=== PATIENT | female | born 2000 | race Caucasian/White ===

== ENCOUNTER → 2022-11-03 | Outpatient (CLI) | payer OTHER ==
[2022-11-04 00:41] LABS: Chol/HDL Ratio 3.64 Ratio; LDL Cholesterol,Calculated 84.4 mg/dL (0.0-131.0)
[2022-11-04 05:54] LABS: C-Peptide <0.02 ng/mL (0.81-3.85)
== END | disposition home or self-care (01) ==
LOC: LABWHC1 16:14
DX: E10.65 Type 1 diabetes mellitus with hyperglycemia (principal); Z86.39 Personal history of other endocrine, nutritional and metabolic disease
CPT/HCPCS: 36415; 80061; 83519; 84439; 84443; 84681

== ENCOUNTER 2023-07-08 20:59 | Inpatient (IN) | payer OTHER ==
[2023-07-08] MEDS ORDERED: diphenhydrAMINE 50 MG CAP PO STA (23:22)
[2023-07-08] MEDS ORDERED: DEXAMETHASONE SOD PHOSPHATE 10 MG/ML 1 ML VIAL IM STA (23:22)
[2023-07-08] MEDS ORDERED: FAMOTIDINE 20 MG TAB PO STA (23:22)
--- NOTE | 2023-07-08 23:25 | ED ---
Skin/Abscess/FB HPI - General Chief complaint: Skin/Abscess/Foreign Body Stated complaint: hives Time Seen by Provider: 07/08/23 23:09 Source: patient Mode of arrival: ambulatory Limitations: no limitations - History of Present Illness Initial comments: 23-year-old female presenting with chief complaint hives. Patient states that the hives started yesterday after taking a bath. She denies any new topical products, foods, or medications. Hives or generalized states that they have persisted into today. She has taken a generic antihistamine and has used hydrocortisone cream at home. She is having no difficulty breathing or swallowing. No swelling to the lips or around the eyes. No abdominal pain, nausea, vomiting. No chest pain. Patient states that she has noted some mild right-sided flank pain. No dysuria or hematuria. She states that she had a fever yesterday after her hot bath. - Related Data Previous Rx's Medication Instructions Recorded methylPREDNISolone Dose Pack 4 mg PO DIRECTED #1 packet 07/08/23 [Medrol Dose Pack] Allergies Allergy/AdvReac Type Severity Reaction Status Date / Time No Known Allergies Allergy Verified 07/08/23 21:29 Review of Systems ROS Statement: Those systems with pertinent positive or pertinent negative responses have been documented in the HPI. ROS Other: All systems not noted in ROS Statement are negative. Past Medical History Past Medical History: Diabetes Mellitus History of Any Multi-Drug Resistant Organisms: None Reported Past Surgical History: No Surgical Hx Reported Past Psychological History: Anxiety, Depression Smoking Status: Never smoker Past Alcohol Use History: None Reported Past Drug Use History: None Reported General Exam Limitations: no limitations General appearance: alert, in no apparent distress Head exam: Present: atraumatic, normocephalic, normal inspection Eye exam: Present: normal appearance, EOMI Neck exam: Present: normal inspection, full ROM Respiratory exam: Present: normal lung sounds bilaterally. Absent: respiratory distress, wheezes, rales, rhonchi, stridor Cardiovascular Exam: Present: regular rate, normal rhythm, normal heart sounds. Absent: systolic murmur, diastolic murmur, rubs, gallop, clicks GI/Abdominal exam: Present: soft. Absent: distended, tenderness, guarding, rebound, rigid Neurological exam: Present: alert, oriented X3, CN II-XII intact Psychiatric exam: Present: normal affect, normal mood Skin exam: Present: warm, dry, intact, urticaria Course Vital Signs 07/08/23 07/08/23 07/08/23 21:26 23:31 23:54 Temperature 98.9 F Pulse Rate 132 H 96 102 H Respiratory 18 16 18 Rate Blood Pressure 119/80 89/56 99/53 O2 Sat by Pulse 96 98 98 Oximetry 07/09/23 00:24 Temperature Pulse Rate 98 Respiratory 18 Rate Blood Pressure 102/68 O2 Sat by Pulse 98 Oximetry Medical Decision Making - Medical Decision Making Was pt. sent in by a medical professional or institution (, DENISE, POLICE LIAISON, urgent care, hospital, or skilled nursing...) When possible be specific @ -No Did you speak to anyone other than the patient for history (EMS, parent, family, police, friend...)? What history was obtained from this source @ -No Did you review nursing and triage notes (agree or disagree)? Why? @ -I reviewed and agree with nursing and triage notes Were old charts reviewed (outside hosp., previous admission, EMS record, old EKG , old radiological studies, urgent care reports/EKG's, skilled nursing records)? Report findings @ -No old charts were reviewed Differential Diagnosis (chest pain, altered mental status, abdominal pain women, abdominal pain men, vaginal bleeding, weakness, fever, dyspnea, syncope, headache, dizziness, GI bleed, back pain, seizure, CVA, palpatations, mental health, musculoskeletal)? @ -Differential includes ALLERGIC reaction, cellulitis, Dwight Michael syndrome, this is not an all-inclusive list EKG interpreted by me (3pts min.). @ -As above X-rays interpreted by me (1pt min.). @ -None done CT interpreted by me (1pt min.). @ -None done U/S interpreted by me (1pt. min.). @ -None done What testing was considered but not performed or refused? (CT, X-rays, U/S, labs)? Why? @ -None What meds were considered but not given or refused? Why? @ -None Did you discuss the management of the patient with other professionals (professionals i.e. DENISE Rivers, POLICE LIAISON, lab, RT, psych nurse, high school social studies tutor, court officer, teacher, anti air warfare operations officer, case assistant)? Give summary @ -My attending spoke with [facility] hospitalist group provider on-call who accepted admission Was smoking cessation discussed for >3mins.? @ -No Was critical care preformed (if so, how long)? @ -No Were there social determinants of health that impacted care today? How? (Homelessness, low income, unemployed, alcoholism, drug addiction, transportation, low edu. Level, literacy, decrease access to med. care, skilled nursing, rehab)? @ -No Was there de-escalation of care discussed even if they declined (Discuss DNR or withdrawal of care, Hospice)? DNR status @ -No What co-morbidities impacted this encounter? (DM, HTN, Smoking, COPD, CAD, Cancer, CVA, ARF, Chemo, Hep., AIDS, mental health diagnosis, sleep apnea, morbid obesity)? @ -None Was patient admitted / discharged? Hospital course, mention meds given and rout e, prescriptions, significant lab abnormalities, going to OR and other pertinent info. @ -23-year-old female presenting with chief complaint of rash that started yesterday. No difficulty breathing or swallowing. Patient was noted to be initially tachycardic, on reassessment she was hypotensive. Lab work shows WBC 19. Urine is positive for infection. HCG is negative. Patient states that she has had some mild right-sided flank pain. Due to hemodynamic instability patient will be admitted for pyelonephritis. She is given 1 g of Rocephin as well as 2 L fluid bolus and started on maintenance rate of 1:30 milliliters per hour. She is agreeable with this plan. I discussed this case with my attending Dr. Yousif Undiagnosed new problem with uncertain prognosis? @ -No Drug Therapy requiring intensive monitoring for toxicity (Heparin, Nitro, Insulin, Cardizem)? @ -No Were any procedures done? @ -No Diagnosis/symptom? @ -Pyelonephritis Acute, or Chronic, or Acute on Chronic? @ -Acute Uncomplicated (without systemic symptoms) or Complicated (systemic symptoms)? @ -Complicated Side effects of treatment? @ -No Exacerbation, Progression, or Severe Exacerbation? @ -No Poses a threat to life or bodily function? How? (Chest pain, [place], [place], pneumonia, PE, COPD, DKA, ARF, appy, cholecystitis, CVA, Diverticulitis, Homicidal, Suicidal, threat to staff... and all critical care pts) @ -yes - Lab Data Result diagrams: 07/08/23 23:48 07/08/23 23:48 Lab Results 07/08/23 07/08/23 07/09/23 Range/Units 23:48 23:48 01:07 WBC 19.0 H (3.8-10.6) k/uL RBC 5.33 (3.80-5.40) m/uL Hgb 13.9 (11.4-16.0) gm/dL Hct 42.9 (34.0-46.0) % MCV 80.4 (80.0-100.0) fL MCH 26.1 (25.0-35.0) pg MCHC 32.5 (31.0-37.0) g/dL RDW 12.9 (11.5-15.5) % Plt Count 376 (150-450) k/uL MPV 8.2 Neutrophils % 83 % Lymphocytes % 12 % Monocytes % 4 % Eosinophils % 0 % Basophils % 0 % Neutrophils # 15.8 H (1.3-7.7) k/uL Lymphocytes # 2.2 (1.0-4.8) k/uL Monocytes # 0.8 (0-1.0) k/uL Eosinophils # 0.1 (0-0.7) k/uL Basophils # 0.0 (0-0.2) k/uL Sodium 132 L (137-145) mmol/L Potassium 3.5 (3.5-5.1) mmol/L Chloride 101 (98-107) mmol/L Carbon Dioxide 20 L (22-30) mmol/L Anion Gap 11 mmol/L BUN 11 (7-17) mg/dL Creatinine 1.08 H (0.52-1.04) mg/dL Est GFR (CKD-EPI)AfAm 84 (>60 ml/min/1.73 sqM) Est GFR (CKD-EPI)NonAf 73 (>60 ml/min/1.73 sqM) Glucose 155 H (74-99) mg/dL Calcium 8.9 (8.4-10.2) mg/dL Total Bilirubin 0.7 (0.2-1.3) mg/dL AST 20 (14-36) U/L ALT 15 (4-34) U/L Alkaline Phosphatase 87 (38-126) U/L Total Protein 6.5 (6.3-8.2) g/dL Albumin 3.5 (3.5-5.0) g/dL Urine Color Yellow Urine Appearance Turbid H (Clear) Urine pH 6.0 (5.0-8.0) Ur Specific [place] 1.031 (1.001-1.035) Urine Protein 2+ H (Negative) Urine Glucose (UA) Trace H (Negative) Urine Ketones 2+ H (Negative) Urine Blood Small H (Negative) Urine Nitrite Positive H (Negative) Urine Bilirubin Negative (Negative) Urine Urobilinogen 2.0 (<2.0) mg/dL Ur Leukocyte Esterase Large H (Negative) Urine RBC 18 H (0-5) /hpf Urine WBC 102 H (0-5) /hpf Ur Squamous Epith Cells 56 H (0-4) /hpf Urine Bacteria Many H (None) /hpf Hyaline Casts 148 H (0-2) /lpf Urine Mucus Many H (None) /hpf Urine HCG, Qual (Not Detectd) 07/09/23 Range/Units 01:07 WBC (3.8-10.6) k/uL RBC (3.80-5.40) m/uL Hgb (11.4-16.0) gm/dL Hct (34.0-46.0) % MCV (80.0-100.0) fL MCH (25.0-35.0) pg MCHC (31.0-37.0) g/dL RDW (11.5-15.5) % Plt Count (150-450) k/uL MPV Neutrophils % % Lymphocytes % % Monocytes % % Eosinophils % % Basophils % % Neutrophils # (1.3-7.7) k/uL Lymphocytes # (1.0-4.8) k/uL Monocytes # (0-1.0) k/uL Eosinophils # (0-0.7) k/uL Basophils # (0-0.2) k/uL Sodium (137-145) mmol/L Potassium (3.5-5.1) mmol/L Chloride (98-107) mmol/L Carbon Dioxide (22-30) mmol/L Anion Gap mmol/L BUN (7-17) mg/dL Creatinine (0.52-1.04) mg/dL Est GFR (CKD-EPI)AfAm (>60 ml/min/1.73 sqM) Est GFR (CKD-EPI)NonAf (>60 ml/min/1.73 sqM) Glucose (74-99) mg/dL Calcium (8.4-10.2) mg/dL Total Bilirubin (0.2-1.3) mg/dL AST (14-36) U/L ALT (4-34) U/L Alkaline Phosphatase (38-126) U/L Total Protein (6.3-8.2) g/dL Albumin (3.5-5.0) g/dL Urine Color Urine Appearance (Clear) Urine pH (5.0-8.0) Ur Specific [place] (1.001-1.035) Urine Protein (Negative) Urine Glucose (UA) (Negative) Urine Ketones (Negative) Urine Blood (Negative) Urine Nitrite (Negative) Urine Bilirubin (Negative) Urine Urobilinogen (<2.0) mg/dL Ur Leukocyte Esterase (Negative) Urine RBC (0-5) /hpf Urine WBC (0-5) /hpf Ur Squamous Epith Cells (0-4) /hpf Urine Bacteria (None) /hpf Hyaline Casts (0-2) /lpf Urine Mucus (None) /hpf Urine HCG, Qual Not Detected (Not Detectd) Disposition Clinical Impression: Pyelonephritis Disposition: ADMITTED IP TO THIS HOSP Condition: Fair Time of Disposition: 03:54
[2023-07-08] MEDS ORDERED: SODIUM CHLORIDE 0.9% 1,000 ML IV ONE (23:38)
[2023-07-08 23:59] LABS: Basophils % (A) 0 %; Eosinophils # (A) 0.1 k/uL (0-0.7); Eosinophils % (A) 0 %; HCT 42.9 % (34.0-46.0); HGB 13.9 gm/dL (11.4-16.0); Lymphocytes # (A) 2.2 k/uL (1.0-4.8); Lymphocytes % (A) 12 %; MCH 26.1 pg (25.0-35.0); MCHC 32.5 g/dL (31.0-37.0); MCV 80.4 fL (80.0-100.0); Mean Platelet Volume 8.2; Monocytes # (A) 0.8 k/uL (0-1.0); Monocytes % (A) 4 %; Neutrophils # (A) 15.8 k/uL (1.3-7.7); Neutrophils % (A) 83 %; Platelet Count 376 k/uL (150-450); RBC 5.33 m/uL (3.80-5.40); RDW 12.9 % (11.5-15.5)
[2023-07-09 00:26] LABS: ALT 15 U/L (4-34); AST 20 U/L (14-36); African American GFR (CKD) 84 (>60 ml/min/1.73 sqM); Albumin 3.5 g/dL (3.5-5.0); Alkaline Phosphatase 87 U/L (38-126); Anion Gap 11 mmol/L; Blood Urea Nitrogen 11 mg/dL (7-17); Calcium 8.9 mg/dL (8.4-10.2); Carbon Dioxide 20 mmol/L (22-30); Chloride 101 mmol/L (98-107); Glucose 155 mg/dL (74-99); Non-African American GFR(CKD) 73 (>60 ml/min/1.73 sqM); Potassium 3.5 mmol/L (3.5-5.1); Sodium 132 mmol/L (137-145); Total Bilirubin 0.7 mg/dL (0.2-1.3); Total Protein 6.5 g/dL (6.3-8.2)
[2023-07-09 01:24] LABS: Appearance,Urine Turbid (Clear); Bacteria,Urine Many /hpf; Bilirubin,Urine Negative (Negative); Blood,Urine Small (Negative); Color,Urine Yellow; Glucose,Urine (UA) Trace (Negative); Hyaline Casts,Urine 148 /lpf (0-2); Ketones,Urine 2+ (Negative); Leukocyte Esterase,Urine Large (Negative); Mucus,Urine Many /hpf; Nitrite,Urine Positive (Negative); Protein,Urine 2+ (Negative); RBC,Urine 18 /hpf (0-5); Specific Gravity,Urine 1.031 (1.001-1.035); Squamous Epithelial Cell,Urine 56 /hpf (0-4); WBC,Urine 102 /hpf (0-5)
[2023-07-09] MEDS ORDERED: ACETAMINOPHEN TAB 325 MG TAB PO PRN (01:43)
[2023-07-09] MEDS ORDERED: NALOXONE 0.4 MG/ML 1 ML VIAL IV PRN (01:43)
[2023-07-09] MEDS ORDERED: IBUPROFEN 400 MG TAB PO PRN (01:43)
[2023-07-09] MEDS ORDERED: KETOROLAC 15 MG/ML 1 ML VIAL IVP PRN (01:43)
[2023-07-09] MEDS ORDERED: ONDANSETRON 4 MG/2 ML VIAL IVP PRN (01:43)
[2023-07-09] MEDS ORDERED: SODIUM CHLORIDE 0.9% 1,000 ML IV ONE (01:44)
[2023-07-09] MEDS ORDERED: cefTRIAXone IN SWFI 1,000 MG/10 ML SYRINGE IVP ONE (02:00)
[2023-07-09] MEDS ORDERED: diphenhydrAMINE 25 MG CAP PO PRN (02:54)
[2023-07-09] MEDS: SODIUM CHLORIDE 0.9% 1,000 ML IV SCH ×2 (04:37→08:37)
[2023-07-09] MEDS ORDERED: DEXTROSE 50% SYRINGE 50 ML IVP PRN ×2 (09:57)
[2023-07-09] MEDS ORDERED: PREGABALIN 75 MG CAP PO SCH (10:00)
[2023-07-09] MEDS ORDERED: FLUoxetine HCL 20 MG CAP PO SCH (10:00)
[2023-07-09] MEDS ORDERED: Insulin Aspart (For Pump) 100 UNIT/ML VIAL SQ-PUMP SCH (10:00)
[2023-07-09 11:37] LABS: Basophils % (A) 0 %; Eosinophils # (A) 0.1 k/uL (0-0.7); Eosinophils % (A) 1 %; HCT 40.3 % (34.0-46.0); HGB 13.1 gm/dL (11.4-16.0); Lymphocytes % (A) 7 %; MCH 26.4 pg (25.0-35.0); MCHC 32.6 g/dL (31.0-37.0); MCV 81.2 fL (80.0-100.0); Monocytes # (A) 0.4 k/uL (0-1.0); Monocytes % (A) 3 %; Neutrophils # (A) 13.2 k/uL (1.3-7.7); Neutrophils % (A) 90 %; Platelet Count 382 k/uL (150-450); RBC 4.96 m/uL (3.80-5.40); WBC 14.7 k/uL (3.8-10.6)
[2023-07-09 11:58] LABS: ALT 16 U/L (4-34); AST 20 U/L (14-36); African American GFR (CKD) >90 (>60 ml/min/1.73 sqM); Albumin 3.4 g/dL (3.5-5.0); Albumin/Globulin Ratio 1.2; Alkaline Phosphatase 90 U/L (38-126); Anion Gap 10 mmol/L; Blood Urea Nitrogen 11 mg/dL (7-17); Calcium 8.8 mg/dL (8.4-10.2); Carbon Dioxide 19 mmol/L (22-30); Chloride 107 mmol/L (98-107); Globulin 2.9 g/dL; Glucose 233 mg/dL (74-99); Non-African American GFR(CKD) >90 (>60 ml/min/1.73 sqM); Potassium 4.3 mmol/L (3.5-5.1); Sodium 136 mmol/L (137-145); Total Bilirubin 0.4 mg/dL (0.2-1.3); Total Protein 6.3 g/dL (6.3-8.2)
[2023-07-09 12:13] LABS: Glucose,Whole Blood 209 mg/dL (70-110)
[2023-07-09] MEDS ORDERED: HYDROCORTISONE 1% CREAM 30 GM TUBE TOPICAL PRN (14:08)
[2023-07-09] MEDS ORDERED: LORATADINE 10 MG TAB PO SCH (14:15)
--- NOTE | 2023-07-09 14:23 | P.HPIM ---
History of Present Illness H&P Date: 07/09/23 This is a pleasant 23-year-old female who presented to the emergency department with increased itching and discomfort and hives. Patient reports she was taking a hot bath and has been chronically having issues with hives and welts and rashes over the last few years when getting too hot. Patient reports she was taking a hot bath and came out of the bath and had multiple small lesions and welts noted an [id number] was not helping. Patient reports she follows with Dr. Lugo out of [place] as her primary care provider with past medical history of diabetes mellitus, type I is maintained on insulin pump. 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 Patient reports her primary care provider has been providing her insulins for her. Patient was also noted to have some right CVA tenderness on exam and did present with an elevated white count and was tachycardic on admission. Urinalysis was obtained showing small blood with positive nitrates large leukocytes and was given a dose of ceftriaxone. Urine culture was sent and pending at this time. Patient was admitted for acute pyelonephritis. On exam patient no longer reports any CVA tenderness denies any pain, burning, frequency with urination and continues to have some small welts that are itchy although have improved as well. Review Of Systems: Constitutional: Reports of fever prior to hospitalization, no chills, no night sweats. No weight change. No weakness, fatigue or lethargy. No daytime sleepiness. EENT: No headache. No blurred vision or double vision, no loss of vision. No loss of Hearing, no ringing in the ears, no dizziness. No nasal drainage or congestion. No epistaxis. No sore throat. Lungs: No shortness of breath, cough, no sputum production. No wheezing. Cardiovascular: No chest pain, no lower extremity edema. No palpitations. No paroxysmal nocturnal dyspnea. No orthopnea. No lightheadedness or dizziness. No syncopal episodes. Abdominal: No abdominal pain. No nausea, vomiting. No diarrhea. No constipation. No bloody or tarry stools.. No loss of appetite. Reported some right mid to upper back pain that has resolved Genitourinary: No dysuria, increased frequency, urgency. No urinary retention. Musculoskeletal: No myalgias. No muscle weakness, no gait dysfunction, no frequent falls. No back pain. No neck pain. Integumentary: No wounds, reports hives and welts that come and go. Reports severe itchiness. No rash or pruritus. No unusual bruising. No change in hair or nails. Neurologic: No aphasia. No facial droop. No change in mentation. No head injury. No headache. No paralysis. No paresthesia. Psychiatric: No depression. No anxiety. No mood swings. Endocrine: No abnormal blood sugars. No weight change. No excessive sweating or thirst. No cold intolerance. PHYSICAL EXAMINATION: GENERAL: The patient is alert and oriented x4, Well developed, well nourished. Obese HEENT: Pupils are round and equally reacting to light. EOMI. no scleral icterus. No conjunctival pallor. Normocephalic, atraumatic. No pharyngeal erythema. No thyromegaly. CARDIOVASCULAR: S1 and S2 muffled PULMONARY: diminished breath sounds bilaterally with no wheezing or rhonchi noted. ABDOMEN: soft. Nontender on exam. obese. non-distended, normoactive bowel sounds. No palpable organomegaly. MUSCULOSKELETAL: No joint swelling or deformity. EXTREMITIES: No cyanosis, clubbing, or pedal edema. NEUROLOGICAL: Gross neurological examination did not reveal any focal deficits. Diffuse weakness SKIN: Multiple half dime size welts noted on upper and lower extremities with minimal redness. Assessment: Hives, concern for ALLERGIC reaction although suspicion is low as patient has not changed soaps, detergents, lotions, medications Fevers and tachycardia, secondary to acute pyelonephritis Acute urinary tract infection, present on admission Leukocytosis, secondary to above diabetes mellitus, type I, insulin-dependent on an insulin pump Obesity with BMI 36.6 History of anxiety/depression GI prophylaxis DVT prophylaxis Full code Plan: Patient has her insulin pump on her that is working properly and will continue and will add Accu-Cheks before meals and at bedtime and monitor closely Patient was given a dose of ceftriaxone for urinary tract infection with acute pyelonephritis and will continue White count trending down and will follow-up with repeat labs. Patient is afebrile and will continue IV hydration Patient with these small half dime size welts on the upper and lower extremities and patient reports has been ongoing for a few years whenever she gets overheated. We'll continue hydrocortisone cream and add Claritin and also refer to dermatology on discharge Will follow-up with repeat labs in a.m. and await urine culture Possible discharge in the next 24-48 hours. The impression and plan of care has been dictated by Chey Menjivar, nurse practitioner as directed. Dr. Jason MD I have performed a history and examination and MDM of this patient, discussed the same with the dictator, and agree with the dictator's assessment and plan as written ,documented as a scribe. Based on total visit time, I have performed more than 50% of the visit. Any additional findings or plans will be noted. Past Medical History Past Medical History: Diabetes Mellitus History of Any Multi-Drug Resistant Organisms: None Reported Past Surgical History: No Surgical Hx Reported Past Psychological History: Anxiety, Depression Smoking Status: Never smoker Past Alcohol Use History: None Reported Past Drug Use History: None Reported Medications and Allergies Home Medications Medication Instructions Recorded Confirmed Type methylPREDNISolone Dose Pack 4 mg PO DIRECTED #1 packet 07/08/23 Rx [Medrol Dose Pack] FLUoxetine HCL [PROzac] 40 mg PO DAILY 07/09/23 07/09/23 History Insulin Aspart (For Pump) [NovoLOG 0.01 unit SQ-PUMP CONTINUOUS 07/09/23 07/09/23 History (For Pump)] Prazosin [Minipress] 1 mg PO HS 07/09/23 07/09/23 History Pregabalin [Lyrica] 150 mg PO BID 07/09/23 07/09/23 History Allergies Allergy/AdvReac Type Severity Reaction Status Date / Time No Known Allergies Allergy Verified 07/09/23 06:46 Physical Exam Vitals: Vital Signs Temp Pulse Resp BP Pulse Ox 07/09/23 06:45 97.8 F 83 16 116/77 97 07/09/23 00:24 98 18 102/68 98 07/08/23 23:54 102 H 18 99/53 98 07/08/23 23:31 96 16 89/56 98 07/08/23 21:26 98.9 F 132 H 18 119/80 96 Intake and Output 07/08/23 07/09/23 07/09/23 22:59 06:59 14:59 Other: Weight 99.79 kg Results CBC & Chem 7: 07/09/23 11:11 07/09/23 11:11 Labs: Abnormal Lab Results - Last 24 Hours (Table) 07/08/23 07/08/23 07/09/23 Range/Units 23:48 23:48 01:07 WBC 19.0 H (3.8-10.6) k/uL Neutrophils # 15.8 H (1.3-7.7) k/uL Sodium 132 L (137-145) mmol/L Carbon Dioxide 20 L (22-30) mmol/L Creatinine 1.08 H (0.52-1.04) mg/dL Glucose 155 H (74-99) mg/dL Urine Appearance Turbid H (Clear) Urine Protein 2+ H (Negative) Urine Glucose (UA) Trace H (Negative) Urine Ketones 2+ H (Negative) Urine Blood Small H (Negative) Urine Nitrite Positive H (Negative) Ur Leukocyte Esterase Large H (Negative) Urine RBC 18 H (0-5) /hpf Urine WBC 102 H (0-5) /hpf Ur Squamous Epith Cells 56 H (0-4) /hpf Urine Bacteria Many H (None) /hpf Hyaline Casts 148 H (0-2) /lpf Urine Mucus Many H (None) /hpf Thrombosis Risk Factor Assmnt - DVT/VTE Prophylaxis DVT/VTE Prophylaxis: Low risk, early ambulation encouraged Assessment and Plan Time with Patient: Greater than 30
[2023-07-09 15:49] VITALS: BP 136/85; PULSE 74; RESP 16; TEMP 98.1
[2023-07-09] MEDS ORDERED: PRAZOSIN 1 MG CAP PO SCH (21:00)
[2023-07-10] MEDS ORDERED: PANTOPRAZOLE 40 MG TABLET PO SCH (07:30)
--- NOTE | 2023-07-11 07:13 | P.DS ---
Providers Date of admission: 07/09/23 01:45 Expected date of discharge: 07/09/23 Attending physician: Robby Osborne Primary care physician: Physician Nonstaff Hospital Course: Final diagnosis Hives, concern for ALLERGIC reaction although suspicion is low as patient has not changed soaps, detergents, lotions, medications Fevers and tachycardia, secondary to acute pyelonephritis Acute urinary tract infection, present on admission Leukocytosis, secondary to above diabetes mellitus, type I, insulin-dependent on an insulin pump Obesity with BMI 36.6 History of anxiety/depression GI prophylaxis DVT prophylaxis Full code Discharge disposition Patient is leaving AGAINST MEDICAL ADVICE in a stable condition with guarded prognosis to home. Patient will follow-up with her primary care provider in [place] in the outpatient setting upon discharge. Patient is to continue with oral Ceftin 500 mg twice daily. Urine cultures pending and discussed with the patient will follow-up on finalized cultures and change antibiotics if needed. Total time taken is greater than 35 minutes. Hospital course This is a pleasant 23-year-old female who presented to the emergency department with increased itching and discomfort and hives. Patient reports she was taking a hot bath and has been chronically having issues with hives and welts and rashes over the last few years when getting too hot. Patient reports she was taking a hot bath and came out of the bath and had multiple small lesions and welts noted an [id number] was not helping. Patient reports she follows with Dr. Lugo out of [place] as her primary care provider with past medical history of diabetes mellitus, type I is maintained on insulin pump. 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 Patient reports her primary care provider has been providing her insulins for her. Patient was also noted to have some right CVA tenderness on exam and did present with an elevated white count and was tachycardic on admission. Urinalysis was obtained showing small blood with positive nitrates large leukocytes and was given a dose of ceftriaxone. Urine culture was sent and pending at this time. Patient was admitted for acute pyelonephritis. On exam patient no longer reports any CVA tenderness denies any pain, burning, frequency with urination and continues to have some small welts that are itchy although have improved as well. Later in the day patient notified nursing staff she wanted to leave AGAINST MEDICAL ADVICE and risks versus benefits were discussed and patient signed the AMA paperwork reporting she had to get home to her cats. Discussed with patient that they will be notifying her of finalized cultures and changing antibiotics if needed if patient has any worsening symptoms or increased fevers or difficulty in urination or pain to report to the nearest emergency department or call 911. Patient verbalized understanding. PHYSICAL EXAMINATION: GENERAL: The patient is alert and oriented x4, Well developed, well nourished. Obese HEENT: Pupils are round and equally reacting to light. EOMI. no scleral icterus. No conjunctival pallor. Normocephalic, atraumatic. No pharyngeal erythema. No thyromegaly. CARDIOVASCULAR: S1 and S2 muffled PULMONARY: diminished breath sounds bilaterally with no wheezing or rhonchi noted. ABDOMEN: soft. Nontender on exam. obese. non-distended, normoactive bowel sounds. No palpable organomegaly. MUSCULOSKELETAL: No joint swelling or deformity. EXTREMITIES: No cyanosis, clubbing, or pedal edema. NEUROLOGICAL: Gross neurological examination did not reveal any focal deficits. Diffuse weakness SKIN: Multiple half dime size welts noted on upper and lower extremities with minimal redness. Please refer to medication reconciliation sheet for a list of medications. The impression and plan of care has been dictated by Chey Menjivar, Nurse Practitioner as directed. Dr. Jason MD I have performed a history and examination and MDM of this patient, discussed the same with the dictator, and agree with the dictator's assessment and plan as written ,documented as a scribe. Based on total visit time, I have performed more than 50% of the visit. Patient Condition at Discharge: Fair Plan - Discharge Summary New Discharge Prescriptions: New methylPREDNISolone Dose Pack [Medrol Dose Pack] 4 mg PO DIRECTED #1 packet diphenhydrAMINE [Benadryl] 25 mg PO QID PRN cap PRN Reason: Itching Loratadine [Claritin] 10 mg PO DAILY #30 tab cefUROXime axetiL [Ceftin] 500 mg PO BID 7 Days #14 tab Hydrocortisone Cream [Hydrocortisone 1% Cream] 1 applic TOPICAL QID PRN #1 each PRN Reason: Skin Irritation Acetaminophen Tab [Tylenol] 650 mg PO Q6HR PRN tab PRN Reason: Mild Pain Or Fever > 100.5 Continue Insulin Aspart (For Pump) [NovoLOG (For Pump)] 0.01 unit SQ-PUMP CONTINUOUS Pregabalin [Lyrica] 150 mg PO BID Prazosin [Minipress] 1 mg PO HS FLUoxetine HCL [PROzac] 40 mg PO DAILY Discharge Medication List methylPREDNISolone Dose Pack [Medrol Dose Pack] 4 mg PO DIRECTED #1 packet 07/08/23 [Rx] Acetaminophen Tab [Tylenol] 650 mg PO Q6HR PRN tab 07/09/23 [Rx] FLUoxetine HCL [PROzac] 40 mg PO DAILY 07/09/23 [History] Hydrocortisone Cream [Hydrocortisone 1% Cream] 1 applic TOPICAL QID PRN #1 each 07/09/23 [Rx] Insulin Aspart (For Pump) [NovoLOG (For Pump)] 0.01 unit SQ-PUMP CONTINUOUS 07/09/23 [History] Loratadine [Claritin] 10 mg PO DAILY #30 tab 07/09/23 [Rx] Prazosin [Minipress] 1 mg PO HS 07/09/23 [History] Pregabalin [Lyrica] 150 mg PO BID 07/09/23 [History] cefUROXime axetiL [Ceftin] 500 mg PO BID 7 Days #14 tab 07/09/23 [Rx] diphenhydrAMINE [Benadryl] 25 mg PO QID PRN cap 07/09/23 [Rx] Follow up Appointment(s)/Referral(s): Nonstaff,Physician [Primary Care Provider] - 1-2 days Patient Instructions/Handouts: Urinary Tract Infection in Women (DC) Activity/Diet/Wound Care/Special Instructions: Continue taking antibiotics until finished Nurse practitioner will call and follow-up in regards to urine cultures Follow-up with her primary care provider on discharge Follow-up with dermatology Continue dose pack Continue hydrocortisone Avoid itching and scratching the areas Discharge Disposition: LEFT AGAINST MEDICAL ADVICE
--- NOTE | 2023-07-13 12:32 | CDI ---
Documentation Clarification Form Date: 07/13/2023 12:09:40 PM From: Mey Painter RN, CCDS Email: [email or web address] Admit Date: 07/09/2023 01:45:00 AM Patient Name: Lulu Lopez Visit Number: [id number] Discharge Date: 07/09/2023 03:45:00 PM ATTENTION: The Clinical Documentation Specialists (CDI) and [facility] Coding Staff appreciate your assistance in clarifying documentation. Please respond to the clarification below the line at the bottom and electronically sign. The CDI & [facility] Coding staff will review the response and follow-up if needed. Please note: Queries are made part of the Legal Health Record. If you have any questions, please contact the author of this message via ITS. Dr. Tripp Gomez The patient had an elevated white count and heart rate. Based on this information and the findings below, is there an additional diagnosis that is clinically appropriate for this patient? History/Risk Factors: DM T1, chronic issues with hives and welts. Presented with itching, discomfort and hives. Admitted with UTI but left AMA same day. Clinical Indicators: H&P: "Patient was also noted to have some right CVA tenderness on exam and did present with an elevated white count and was tachycardic on admission." 07/08-07/09 WBC: 19.0-14.7; Neutrophils 15.8-13.2 07/09 Urine: turbid, small blood, positive nitrite, large leukocyte esterase, 102 WBC, many bacteria Urine culture: Escherichia coli 07/08-07/09 Vital signs: HR [id number], BP 119/80-89/56 Treatment: Antibiotics: IVP Rocephin 1000mg on 07/09 then 1gm Q24H IV Bolus: 2L 0.9 NS IV bolus on 07/08-07/09 then 75ml/hr Is there an additional diagnosis that is clinically appropriate for this patient? [ x ] Sepsis, present on admission [ ] Other, please specify [ ] Unable to determine SIRS Criteria: 2 or more of the following may indicate SIRS Temperature < 96.8F (36C) or > 101.0F (38.3C) Heart Rate > 90 bpm Respiratory Rate > 20 breaths/min or PaCO2 < 32 mmHg White Blood Cell Count > 12,000 or < 4,000 cells/mm3 or > 10% bands MTDD
== END 2023-07-09 15:45 | disposition left against medical advice (07) | DRG 872 ==
LOC: EC 20:59 → 5NMEDONC 07-09 01:45
PROVIDERS: ADMIT Hospitalist; ATTEND Hospitalist
DX: A41.9 Sepsis, unspecified organism (principal); N10 Acute pyelonephritis; R00.0 Tachycardia, unspecified; L50.9 Urticaria, unspecified; E10.9 Type 1 diabetes mellitus without complications; B96.89 Other specified bacterial agents as the cause of diseases classified elsewhere; E66.9 Obesity, unspecified; Z53.29 Procedure and treatment not carried out because of patient's decision for other reasons; Z68.36 Body mass index [BMI] 36.0-36.9, adult; F41.9 Anxiety disorder, unspecified; F32.A Depression, unspecified; Z79.4 Long term (current) use of insulin; Z79.899 Other long term (current) drug therapy; Z96.41 Presence of insulin pump (external) (internal)
CPT/HCPCS: 36415; 80053; 81001; 81025; 83036; 85025; 87040; 87077; 87086; 87186; 93005; 96361; 96365; 96375; 96376; 99285

== ENCOUNTER 2025-02-21 00:11 | Emergency (ER) | payer OTHER ==
[2025-02-21 00:22] LABS: Glucose,Whole Blood 454 mg/dL (70-110)
[2025-02-21 00:25] VITALS: BP 137/90; PULSE 83; RESP 18; TEMP 97.8
[2025-02-21] MEDS: SODIUM CHLORIDE 0.9% 1,000 ML IV ONE ×2 (00:46→02:56)
[2025-02-21 00:52] LABS: Basophils # (A) 0.04 10*3/uL (0.00-0.10); Basophils % (A) 0.4 %; Eosinophils # (A) 0.11 10*3/uL (0.04-0.35); HCT 41.7 % (37.2-46.3); HGB 13.9 g/dL (12.0-15.0); Lymphocytes # (A) 2.94 10*3/uL (0.90-5.00); Lymphocytes % (A) 26.2 %; MCH 27.1 pg (27.0-32.0); MCHC 33.3 g/dL (32.0-37.0); MCV 81.3 fL (80.0-97.0); Mean Platelet Volume 10.1 fL (9.5-12.2); Monocytes # (A) 0.71 10*3/uL (0.20-1.00); Monocytes % (A) 6.3 %; Neutrophils # (A) 7.41 10*3/uL (1.80-7.70); Neutrophils % (A) 65.8 %; Platelet Count 393 10*3/uL (140-440); RBC 5.13 10*6/uL (4.10-5.20); RDW 12.9 % (11.5-14.5); WBC 11.24 10*3/uL (4.50-10.00)
[2025-02-21 01:03] LABS: ALT 20 U/L (4-34); AST 22 U/L (14-36); African American GFR (CKD) >90 (>60 ml/min/1.73 sqM); Albumin 4.4 g/dL (3.5-5.0); Alkaline Phosphatase 178 U/L (38-126); Anion Gap 13 mmol/L; Blood Urea Nitrogen 12 mg/dL (7-17); Calcium 9.8 mg/dL (8.4-10.2); Carbon Dioxide 23 mmol/L (22-30); Chloride 96 mmol/L (98-107); Glucose 496 mg/dL (74-99); Non-African American GFR(CKD) >90 (>60 ml/min/1.73 sqM); Potassium 4.6 mmol/L (3.5-5.1); Sodium 132 mmol/L (137-145); Total Bilirubin 0.5 mg/dL (0.2-1.3); Total Protein 7.3 g/dL (6.3-8.2)
[2025-02-21 03:02] LABS: Glucose,Whole Blood 328 mg/dL (70-110)
--- NOTE | 2025-02-21 03:43 | ED ---
General Adult HPI - General Chief complaint: Recheck/Abnormal Lab/Rx Stated complaint: Blood Sugar Issues Time Seen by Provider: 02/21/25 00:27 Source: patient Mode of arrival: ambulatory Limitations: no limitations - History of Present Illness Initial comments: This patient is a 24-year-old woman with diabetes who presents with complaint that her insulin pump had broken tonight. She has been without insulin for a number of hours and her blood sugar has been elevated. She states that she contacted her caregivers and a new pump will be available tomorrow but not tonight. She had no way of administering insulin at home. She does have urinary frequency that it started tonight and she is having polydipsia as well. She denies other symptoms. She is not having symptoms of infection. -: hour(s) Severity scale (1-10): 0 Consistency: constant Improves with: none Worsens with: none Associated Symptoms: other Treatments Prior to Arrival: none - Related Data Home Medications Medication Instructions Recorded Confirmed FLUoxetine HCL [PROzac] 40 mg PO DAILY 07/09/23 07/09/23 Insulin Aspart (For Pump) [NovoLOG 0.01 unit SQ-PUMP CONTINUOUS 07/09/23 07/09/23 (For Pump)] Prazosin [Minipress] 1 mg PO HS 07/09/23 07/09/23 Pregabalin [Lyrica] 150 mg PO BID 07/09/23 07/09/23 Previous Rx's Medication Instructions Recorded methylPREDNISolone Dose Pack 4 mg PO DIRECTED #1 packet 07/08/23 [Medrol Dose Pack] Acetaminophen Tab [Tylenol] 650 mg PO Q6HR PRN tab 07/09/23 Hydrocortisone Cream 1 applic TOPICAL QID PRN #1 each 07/09/23 [Hydrocortisone 1% Cream] Loratadine [Claritin] 10 mg PO DAILY #30 tab 07/09/23 cefuroxime axetiL [Ceftin] 500 mg PO BID 7 Days #14 tab 07/09/23 diphenhydrAMINE [Benadryl] 25 mg PO QID PRN cap 07/09/23 Allergies Allergy/AdvReac Type Severity Reaction Status Date / Time No Known Allergies Allergy Verified 02/21/25 00:21 Review of Systems ROS Statement: Those systems with pertinent positive or pertinent negative responses have been documented in the HPI. ROS Other: All systems not noted in ROS Statement are negative. Constitutional: Denies: fever, chills, weakness Eyes: Denies: vision change ENT: Denies: throat pain, congestion Respiratory: Denies: cough, dyspnea Cardiovascular: Denies: chest pain, palpitations Endocrine: Reports: polydipsia, polyuria Gastrointestinal: Denies: abdominal pain, nausea, vomiting, diarrhea Genitourinary: Denies: dysuria, frequency Skin: Denies: rash Neurological: Denies: headache, weakness Past Medical History Past Medical History: Diabetes Mellitus, Eye Disorder Additional Past Medical History / Comment(s): Graves disease, type 2 DM, neuropathy History of Any Multi-Drug Resistant Organisms: None Reported Past Surgical History: No Surgical Hx Reported Additional Past Surgical History / Comment(s): dental Past Psychological History: Anxiety, Depression Smoking Status: Never smoker Past Alcohol Use History: None Reported Past Drug Use History: None Reported General Exam Limitations: no limitations General appearance: alert, in no apparent distress Head exam: Present: atraumatic, normocephalic Eye exam: Present: normal appearance. Absent: scleral icterus, conjunctival injection ENT exam: Present: normal oropharynx Neck exam: Present: normal inspection Respiratory exam: Present: normal lung sounds bilaterally. Absent: respiratory distress, wheezes, rales, rhonchi, stridor, accessory muscle use Cardiovascular Exam: Present: regular rate, normal rhythm, normal heart sounds. Absent: systolic murmur, diastolic murmur, rubs, gallop GI/Abdominal exam: Present: soft. Absent: distended, tenderness, guarding, rebound, rigid, mass Extremities exam: Present: normal inspection, normal capillary refill. Absent: pedal edema, calf tenderness Neurological exam: Present: alert Skin exam: Present: warm, dry, intact, normal color. Absent: rash Course Vital Signs 02/21/25 00:21 Temperature 97.8 F Pulse Rate 83 Respiratory 18 Rate Blood Pressure 137/90 O2 Sat by Pulse 99 Oximetry Medical Decision Making - Medical Decision Making Was pt. sent in by a medical professional or institution ([facility], [employer], urgent care, hospital, or care home...) When possible be specific @ -[No] Did you speak to anyone other than the patient for history (EMS, parent, family, police, friend...)? What history was obtained from this source @ -[No] Did you review nursing and triage notes (agree or disagree)? Why? @ -[I reviewed and agree with nursing and triage notes] Were old charts reviewed (outside hosp., previous admission, EMS record, old EKG, old radiological studies, urgent care reports/EKG's, care home records)? Report findings @ -[No old charts were reviewed] Differential Diagnosis (chest pain, altered mental status, abdominal pain women, abdominal pain men, vaginal bleeding, weakness, fever, dyspnea, syncope, headache, dizziness, GI bleed, back pain, seizure, CVA, palpatations, mental health, musculoskeletal)? @ -[Hyperglycemia versus DKA EKG interpreted by me (3pts min.). @ -[As above] X-rays interpreted by me (1pt min.). @ -[None done] CT interpreted by me (1pt min.). @ -[None done] U/S interpreted by me (1pt. min.). @ -[None done] What testing was considered but not performed or refused? (CT, X-rays, U/S, labs)? Why? @ -[None] What meds were considered but not given or refused? Why? @ -[None] Did you discuss the management of the patient with other professionals (professionals i.e. , PA, [employer], lab, RT, psych nurse, bilingual social worker, named account executive, teacher, business development officer, pillowcase folder)? Give summary @ -[No] Was smoking cessation discussed for >3mins.? @ -[No] Was critical care preformed (if so, how long)? @ -[No] Were there social determinants of health that impacted care today? How? (Homelessness, low income, unemployed, alcoholism, drug addiction, transportation, low edu. Level, literacy, decrease access to med. care, custodial, rehab)? @ -[No] Was there de-escalation of care discussed even if they declined (Discuss DNR or withdrawal of care, Hospice)? DNR status @ -[No] What co-morbidities impacted this encounter? (DM, HTN, Smoking, COPD, CAD, Cancer, CVA, ARF, Chemo, Hep., AIDS, mental health diagnosis, sleep apnea, morbid obesity)? @ -[None] Was patient admitted / discharged? Hospital course, mention meds given and route, prescriptions, significant lab abnormalities, going to OR and other pertinent info. @ -[24-year-old diabetic patient here with problem with her diabetic pump, the patient given some diabetic supplies to administer insulin at home, she is to have the pump replaced tomorrow. Discussed return parameters Undiagnosed new problem with uncertain prognosis? @ -[No] Drug Therapy requiring intensive monitoring for toxicity (Heparin, Nitro, Insulin, Cardizem)? @ -[No] Were any procedures done? @ -[No] Diagnosis/symptom? @ -[Acute hyperglycemia with diabetic pump failure Acute, or Chronic, or Acute on Chronic? @ -[Acute Uncomplicated (without systemic symptoms) or Complicated (systemic symptoms)? @ -[Uncomplicated Side effects of treatment? @ -[No] Exacerbation, Progression, or Severe Exacerbation? @ -[No] Poses a threat to life or bodily function? How? (Chest pain, [place], [place], pneumonia, PE, COPD, DKA, ARF, appy, cholecystitis, CVA, Diverticulitis, Homicidal, Suicidal, threat to staff... and all critical care pts) @ -[No] All treatments are based on ideal body weight as in ED triage - Lab Data Result diagrams: 02/21/25 00:43 02/21/25 00:43 Lab Results 02/21/25 02/21/25 02/21/25 Range/Units 00:20 00:43 00:43 WBC 11.24 H (4.50-10.00) 10*3/uL RBC 5.13 (4.10-5.20) 10*6/uL Hgb 13.9 (12.0-15.0) g/dL Hct 41.7 (37.2-46.3) % MCV 81.3 (80.0-97.0) fL MCH 27.1 (27.0-32.0) pg MCHC 33.3 (32.0-37.0) g/dL Plt Count 393 (140-440) 10*3/uL MPV 10.1 (9.5-12.2) fL Immature Gran % (Auto) 0.3 % Neutrophils % 65.8 % Lymphocytes % 26.2 % Monocytes % 6.3 % Eosinophils % 1.0 % Basophils % 0.4 % Immature Gran # 0.03 (0.00-0.04) 10*3/uL Neutrophils # 7.41 (1.80-7.70) 10*3/uL Lymphocytes # 2.94 (0.90-5.00) 10*3/uL Monocytes # 0.71 (0.20-1.00) 10*3/uL Eosinophils # 0.11 (0.04-0.35) 10*3/uL Basophils # 0.04 (0.00-0.10) 10*3/uL Sodium 132 L (137-145) mmol/L Potassium 4.6 (3.5-5.1) mmol/L Chloride 96 L (98-107) mmol/L Carbon Dioxide 23 (22-30) mmol/L Anion Gap 13 mmol/L BUN 12 (7-17) mg/dL Creatinine 0.69 (0.52-1.04) mg/dL Est GFR (CKD-EPI)AfAm >90 (>60 ml/min/1.73 sqM) Est GFR (CKD-EPI)NonAf >90 (>60 ml/min/1.73 sqM) Glucose 496 H (74-99) mg/dL POC Glucose (mg/dL) 454 H (70-110) mg/dL POC Glu Petrophysicist ID Ayala Carver Calcium 9.8 (8.4-10.2) mg/dL Total Bilirubin 0.5 (0.2-1.3) mg/dL AST 22 (14-36) U/L ALT 20 (4-34) U/L Alkaline Phosphatase 178 H (38-126) U/L Total Protein 7.3 (6.3-8.2) g/dL Albumin 4.4 (3.5-5.0) g/dL Acetone, Qual Positive (Negative) 02/21/25 Range/Units 03:00 WBC (4.50-10.00) 10*3/uL RBC (4.10-5.20) 10*6/uL Hgb (12.0-15.0) g/dL Hct (37.2-46.3) % MCV (80.0-97.0) fL MCH (27.0-32.0) pg MCHC (32.0-37.0) g/dL Plt Count (140-440) 10*3/uL MPV (9.5-12.2) fL Immature Gran % (Auto) % Neutrophils % % Lymphocytes % % Monocytes % % Eosinophils % % Basophils % % Immature Gran # (0.00-0.04) 10*3/uL Neutrophils # (1.80-7.70) 10*3/uL Lymphocytes # (0.90-5.00) 10*3/uL Monocytes # (0.20-1.00) 10*3/uL Eosinophils # (0.04-0.35) 10*3/uL Basophils # (0.00-0.10) 10*3/uL Sodium (137-145) mmol/L Potassium (3.5-5.1) mmol/L Chloride (98-107) mmol/L Carbon Dioxide (22-30) mmol/L Anion Gap mmol/L BUN (7-17) mg/dL Creatinine (0.52-1.04) mg/dL Est GFR (CKD-EPI)AfAm (>60 ml/min/1.73 sqM) Est GFR (CKD-EPI)NonAf (>60 ml/min/1.73 sqM) Glucose (74-99) mg/dL POC Glucose (mg/dL) 328 H (70-110) mg/dL POC Glu Petrophysicist ID Leanna Portillo Calcium (8.4-10.2) mg/dL Total Bilirubin (0.2-1.3) mg/dL AST (14-36) U/L ALT (4-34) U/L Alkaline Phosphatase (38-126) U/L Total Protein (6.3-8.2) g/dL Albumin (3.5-5.0) g/dL Acetone, Qual (Negative) Disposition Clinical Impression: Hyperglycemia Disposition: HOME SELF-CARE Condition: Good Instructions (If sedation given, give patient instructions): Diabetic Hyperglycemia (ED) Is patient prescribed a controlled substance at d/c from ED?: No Referrals: Nonstaff,Physician [Primary Care Provider] - 1-2 days
== END 2025-02-21 04:13 | disposition home or self-care (01) ==
LOC: EC 00:11
DX: T85.614A Breakdown (mechanical) of insulin pump, initial encounter (principal); E11.65 Type 2 diabetes mellitus with hyperglycemia; Z79.4 Long term (current) use of insulin
CPT/HCPCS: 36415; 80053; 82009; 85025; 96360; 96361; 99284